=== PATIENT | male | born 1955 | race Caucasian/White ===

== ENCOUNTER 2016-09-18 21:08 | Emergency (ER) | payer MEDICAID ==
[2016-09-18 23:17] LABS: BASOPHILS 0.3 % (0-2); EOSINOPHILS 0.9 % (0-7); HEMATOCRIT 43.4 % (42.0-54.0); IMMATURE GRANULOCYTES 0.4 % (0-5); LYMPHOCYTES 12.8 % (15-50); MCH 31.4 pg (26.0-34.0); MCHC 34.6 g/dL (31.0-37.0); MCV 90.8 fL (80.0-100.0); MEAN PLATELET VOLUME 9.5 fL (7.4-10.4); MONOCYTES 4.9 % (2-11); NEUTROPHILS 80.7 % (40-80); PLATELET COUNT 279 10x3/uL (130-400); RBC 4.78 10x6/uL (4.20-6.10); RDW 12.9 % (11.5-14.5); WBC 14.8 10x3/uL (4.8-10.8)
[2016-09-18 23:30] LABS: ALKALINE PHOSPHATASE 74 U/L (46-116); ALT (SGPT) 43 U/L (10-68); BILIRUBIN - TOTAL 0.86 mg/dL (0.2-1.3); CALC OSMOLALITY 272 mosm/kg (275-300); CALCIUM 9.1 mg/dL (8.5-10.1); CARBON DIOXIDE 28.6 mmol/L (21.0-32.0); CHLORIDE - SERUM 99 mmol/L (98-107); POTASSIUM - SERUM 4.2 mmol/L (3.5-5.1); PROTEIN - SERUM 7.8 g/dL (6.4-8.2); SODIUM 135 mmol/L (136-145); UREA NITROGEN 11 mg/dL (7-18); eGFR NON AFRICAN AMERICAN 80 mL/min (90-120)
[2016-09-18 23:31] LABS: GLUCOSE 163 mg/dL (74-106)
[2016-09-18 23:35] LABS: CREATINE KINASE 89 UL (21-232); MAGNESIUM - SERUM 1.9 mg/dL (1.8-2.4)
[2016-09-18 23:36] LABS: TROPONIN-I < 0.017 ng/mL (0.000-0.060)
== END 2016-09-19 00:45 | disposition home or self-care (01) ==
LOC: D.ER 21:08
PROVIDERS: Nurse Practitioner Family
DX: S63.252A Unspecified dislocation of right middle finger, initial encounter (principal); W19.XXXA Unspecified fall, initial encounter; Y93.89 Activity, other specified; Y92.019 Unspecified place in single-family (private) house as the place of occurrence of the external cause; S00.81XA Abrasion of other part of head, initial encounter; S40.812A Abrasion of left upper arm, initial encounter; S40.811A Abrasion of right upper arm, initial encounter; S02.31XA Fracture of orbital floor, right side, initial encounter for closed fracture; S20.219A Contusion of unspecified front wall of thorax, initial encounter; F32.9 Major depressive disorder, single episode, unspecified; E11.9 Type 2 diabetes mellitus without complications; F17.200 Nicotine dependence, unspecified, uncomplicated

== ENCOUNTER 2016-09-29 09:23 | Day surgery (SDC) | payer MEDICAID ==
[~2016-09-29] VITALS: Ht 180.3 cm; Wt 120.2 kg
--- NOTE | ~2016-09-29 | HP ---
PATIENT: HI DAVIS MEDICAL RECORD: [id number] ACCOUNT: [id number] LOCATION:[facility] : 53 ADMISSION DATE: 09/29/16 HISTORY AND PHYSICAL EXAMINATION Preoperative History and Physical HISTORY OF PRESENT ILLNESS: Mr. Davis is a 61-year-old male who sustained a right orbital blowout fracture after a fall. He immediately noticed right facial numbness, diplopia and pain on upward gaze. He has seen an account maintenance representative and his eyeball and retina were okay. He is being admitted for repair of right orbital blowout fracture. PAST MEDICAL HISTORY: Includes diabetes. PAST SURGICAL HISTORY: Includes prostate surgery and colon resection. CURRENT MEDICATIONS: Citalopram, metformin, ____. ALLERGIES: CODEINE, NORCO. PHYSICAL EXAMINATION: GENERAL: He is a healthy-appearing male. He has got a normal voice. FACE: Normal and symmetric. There is no ecchymosis on his face. EARS: Canals and TMs are normal. NOSE: No mass, polyps or drainage. ORAL CAVITY AND OROPHARYNX: No trismus. Pharynx is normal. NECK: No masses, no adenopathy. Cranial nerves: He has got numbness on right V2 distribution. EYES: Left eye is normal. The right eye, pupil is normal, anterior chamber is clear. He has got diplopia on right lateral and upward gaze. He has got pain on upward gaze, really not just to 20 degrees or so, it can go any higher than that. He does look like he has a little bit enophthalmos in his right eye, it is at least a couple millimeters lower than his left. IMPRESSION: Right orbital blowout fracture. PLAN: ORIF repair of right orbital blowout fracture. Discussed risk with him including blindness and persistent diplopia especially given his age and diabetes more likely to have problems with that postoperatively, answered all his questions. TRANSINT:[id number] Voice Confirmation ID: [id number] DOCUMENT ID: [id number] ALISE NAGEL MD CC: [id number] DICTATION DATE: 09/26/16 1113 BALLET PROFESSOR: 09/26/16 1242 PRE [facility] [address] [place] [address]
--- NOTE | ~2016-09-29 | OP ---
PATIENT NAME: HI DAVIS MEDICAL RECORD: [id number] :51 LOCATION:[facility] ADMISSION DATE: SURGEON: ALISE TOLENTINO MD DATE OF OPERATION: 09/29/2016 PREOPERATIVE DIAGNOSIS: Right orbital blowout fracture with enophthalmos diplopia and facial numbness. POSTOPERATIVE DIAGNOSIS: Right orbital blowout fracture with enophthalmos diplopia and facial numbness. PROCEDURE: Repair of right orbital blowout fracture. SURGEON: Alise Tolentino MD ANESTHESIA: General orotracheal. BLOOD LOSS: 2 cc. SPECIMENS: None. IMPLANTS: Medpor 1-mm thick sheath in the orbital floor. COMPLICATIONS: None. DISPOSITION: Recovery stable. DESCRIPTION OF PROCEDURE: He was brought to the operating room and placed in supine position, sedated and intubated by anesthesia. He was prepped and draped in usual sterile fashion, his oral cavity was rinsed with Peridex. The right upper gingival buccal sulcus was injected with a total of 1.5 cc of 1% lidocaine with 1:100,000 epinephrine and including up injecting up over the maxillary antrum. Cautery on a setting of 12 was used to incise the upper gingiva mucosa, this was taken down directly to bone and a Kendall periosteal elevator was used to elevate superiorly. The infraorbital nerve was visualized, but not manipulated, we really did not need to go up that high. Chisel was used to punch into the maxillary sinus and a large Kerrison punch was used to remove enough bony window to get good visualization. Once that was done, the area was inspected. There was obvious large blowout fracture. The mucosa was intact medially, but there was a large tear laterally. Some hematoma was removed with 10 suction and the nares visualized a sharp end of a freer was used to dissect the mucosa off of the fracture, one large piece of bone about almost 2 x 2 cm was dissected out and removed and then the mucosa was dissected medially, laterally and anteriorly to expose the fracture. There was a sharp ledge laterally which the fat and periorbita was wrapped around, so it was really poking directly into the musculature deeply there. Medially, there was some bone fragments attached too close to the ledge. I left a couple of those in placed just to help guide the implant into position. The periorbita was intact nicely. The Medpor was cut to size and placed and then it could be slit in medially up on to the shelf bent into position to allow the lateral edge to pop into place and then it laid flat again really holding up the orbital floor contents into position very nicely. This relieved any impingement up the bony spicules into the periorbita and made a nice flat reduction of the orbital contents up out of the maxillary sinus very nicely. There was really no significant bleeding. The eye was examined, eye position returned to normal, pupils were equal, small, anterior chamber for OPERATIVE REPORT [id number] DAVIS,HI clear and forced duction testing was normal. The area was irrigated, rinsed with Peridex and then saline and then the upper gingival buccal sulcus incision was closed with 4-0 chromic. Once that was done, he was awakened, extubated, and transported to recovery in good condition. Counts were correct. The eye was examined. It looked normal. He had perfectly normal extraocular movements completely intact, only he was a little bit groggy and could not tell me about diplopia, but he had a nice symmetric upward gaze and normal in all directions as well. TRANSINT:[id number] Voice Confirmation ID: [id number] DOCUMENT ID: [id number] ALISE TOLENTINO MD CC: [id number] DICTATION DATE: 09/29/16 152 SUPERVISOR T[employer] CLEANING: 09/30/16 0158 [facility] 09/29/16 [facility] [address] [place] [address]
[~2016-09-29 09:23] MED LIST: CELEXA40 MG PO; GLIMEPIRIDE2 MG PO; GLUCOPHAGE500 MG PO; ULTRAM50 MG PO; VOLTAREN75 MG PO
[2016-09-29 10:25] LABS: HEMATOCRIT 40.4 % (42.0-54.0); HEMOGLOBIN 13.4 g/dL (13.5-17.5); MCH 30.7 pg (26.0-34.0); MCHC 33.2 g/dL (31.0-37.0); MCV 92.7 fL (80.0-100.0); MEAN PLATELET VOLUME 9.4 fL (7.4-10.4); RBC 4.36 10x6/uL (4.20-6.10); RDW 13.1 % (11.5-14.5); WBC 8.3 10x3/uL (4.8-10.8)
[2016-09-29 10:33] LABS: CALC OSMOLALITY 274 mosm/kg (275-300); CALCIUM 8.5 mg/dL (8.5-10.1); CARBON DIOXIDE 26.6 mmol/L (21.0-32.0); CHLORIDE - SERUM 103 mmol/L (98-107); GLUCOSE 162 mg/dL (74-106); POTASSIUM - SERUM 4.2 mmol/L (3.5-5.1); SODIUM 136 mmol/L (136-145); UREA NITROGEN 10 mg/dL (7-18); eGFR NON AFRICAN AMERICAN 80 mL/min (90-120)
[2016-09-29] MEDS ORDERED: AUGMENTIN 875-11 TAB PO (11:00)
[2016-09-29 11:01] VITALS: BP 137/77; Ht 180.3 cm; Wt 120.2 kg
--- NOTE | 2016-09-29 14:41 | NUR ---
1250 PATIENT NOTED TO HAVING SCRATCHED AREAS, ON RIGHT UPPER ARM, IVORY.
--- NOTE | 2016-09-29 15:04 | NUR ---
PT ENTERED THE ROOM AND WAS COMBATIVE. ANESHTESIA ASSITING HELPING HOLD THE PATIENT. ANESTHESIA ALSO ORDERED HYDRALIZINE FOR BP
--- NOTE | 2016-09-29 15:12 | NUR ---
DR NAGEL AT BEDSIDE AND AWARE OF BP.
== END 2016-09-29 16:50 | disposition home or self-care (01) ==
LOC: D.OPS 09:23 → D.PAN 10:00 → D.OPS 10:30
PROVIDERS: Anesthesiology
DX: S02.31XA Fracture of orbital floor, right side, initial encounter for closed fracture (principal); H05.401 Unspecified enophthalmos, right eye; H53.2 Diplopia; R20.0 Anesthesia of skin; E11.9 Type 2 diabetes mellitus without complications; Z79.84 Long term (current) use of oral hypoglycemic drugs; Z79.899 Other long term (current) drug therapy; Z88.5 Allergy status to narcotic agent